=== PATIENT | female | born 1970 | race Caucasian/White ===

== ENCOUNTER → 2020-03-27 | Outpatient (CLI) | payer OTHER, SELFPAY ==
[2020-03-27 08:57] VITALS: BMI 24.4
[2020-03-31 20:48] LABS: HPV APTIMA, High Risk Negative (Negative)
== END | disposition home or self-care (01) ==
LOC: LABSPEC 13:37
PROVIDERS: PCP Student in an Organized Health Care Education/Training Program; Visit Provider Nurse Practitioner Women's Health
DX: Z12.4 Encounter for screening for malignant neoplasm of cervix (principal)
CPT/HCPCS: 87624; 88175; G0145

== ENCOUNTER → 2020-04-25 08:37 | Outpatient (CLI) | payer OTHER, SELFPAY ==
[2020-03-27 08:57] VITALS: BMI 24.4
--- NOTE | 2020-04-25 08:39 | BI_ITS ---
MAMMOGRAPHY - BILATERAL SCREENING REASON FOR EXAM: Female, 49 years old. Routine annual screening examination. PERTINENT HISTORY: Non-contributory. TECHNIQUE: Digital bilateral breast mary (3D mammographic acquisition) in the CC and MLO projections. 2-D mediolateral oblique (MLO) and craniocaudad (CC) views of both breasts were obtained. CAD: Full Field Digital Mammography with Computer Added Detection was performed. COMPARISON: Comparison is made with prior outside examination dated 12/10/2013. FINDINGS: Breast Composition: The breasts are extremely dense, which lowers the sensitivity of mammography. There are no dominant masses or suspicious calcifications. Stable benign-appearing bilateral axillary lymph nodes. No other significant abnormalities are identified. There has been no significant change since the prior study. BI/SCRN MAMM (CAD)W/MRAY BILAT IMPRESSION: Stable bilateral screening mammogram. Yearly follow-up mammogram recommended. (A) ASSESSMENT CATEGORY: BIRADS Category 2: Benign. A letter regarding these results will be sent to the patient by the facility within 30 days. Approximately 10% of breast cancers are not detected by mammography. A normal mammogram should not delay biopsy of a clinically suspicious abnormality. [id number] Electronically Signed: Mehrdad Barton MD at 15:36 EST , Service support ,
== END ==
LOC: OPBI 08:38
PROVIDERS: PCP Student in an Organized Health Care Education/Training Program; Referring Provider Nurse Practitioner Women's Health; Visit Provider Nurse Practitioner Women's Health
DX: Z12.31 Encounter for screening mammogram for malignant neoplasm of breast (principal)
CPT/HCPCS: 77063; 77067

== ENCOUNTER 2021-01-07 07:53 | Emergency (ER) | payer OTHER, SELFPAY ==
[2021-01-07 07:54] VITALS: BP 167/102; PULSE 79; RESP 18; TEMP 36.1; O2SAT 100; BMI 22.8
[2021-01-07 08:05] VITALS: BP 159/100; PULSE 78; RESP 11; O2SAT 100
--- NOTE | 2021-01-07 08:08 | CT_ITS ---
STUDY: CT CHEST WITH CONTRAST REASON FOR EXAM: Female, 50 years old. Chest pain/pressure. Intermittent dysphagia. RADIATION DOSAGE (If Supplied By Facility): CTDIvol = ( 11.77 ) mGy, DLP = ( 658.19 ) mGycm TECHNIQUE: Transaxial imaging was performed following intravenous administration of IV 100mL Isovue-370. Multiplanar coronal and sagittal images were reformatted. Individualized dose optimization techniques were used for this CT. COMPARISON: Comparison is made with prior study dated 07/09/2014. FINDINGS: There is evidence of increased linear markings in the right lung apex medially extending to the medial aspect of the right upper lobe in keeping with the patient''s history of prior surgery. Patient has a history of prior right apical pneumothorax. There is no demonstrated pleural abnormality. Normal heart and pericardium. Normal mediastinum. Normal hilar regions. Normal enhanced pulmonary arteries. Normal aorta arch and descending thoracic aorta. Normal osseous structures. There is no demonstrated abnormality of the visualized upper abdomen. CT/Chest WITH Contrast IMPRESSION: Findings in comparison with the prior surgery in the right lung apex with postoperative scarring. No acute abnormality is seen. Electronically Signed: Mehrdad Barton MD at 9:23 EDT , Service support ,
--- NOTE | 2021-01-07 08:08 | CT_ITS ---
STUDY: CT SOFT TISSUE NECK WITH CONTRAST REASON FOR EXAM: Female, 50 years old. Several week history of chest pain and chest pressure. Intermittent dysphagia. RADIATION DOSAGE (If Supplied By Facility): CTDIvol = ( 11.77 ) mGy, DLP = ( 658.19 ) mGycm TECHNIQUE: The patient was scanned in a multi-detector CT scanner. High resolution transaxial imaging was performed following intravenous administration of IV 100mL Isovue-370. Sagittal and coronal images were reconstructed. Individualized dose optimization techniques were used for this CT. COMPARISON: None. FINDINGS: Stable increased linear markings in the medial aspect of the right upper lobe with bronchiectasis in keeping with the patient''s history of prior surgical intervention. Normal bilateral parotid glands. Normal bilateral anthropometrist spaces. Normal bilateral parapharyngeal spaces. Normal bilateral carotid spaces. Normal bilateral sublingual and submandibular glands and spaces. Normal visualized nasopharynx. Normal retropharyngeal space. Normal perivertebral space. Normal visualized bilateral faucial tonsils. The visualized tongue, tongue base and oropharynx are normal. The visualized cervical lymph nodes (levels I-) are within normal size limits, and maintain normal morphology. There is no demonstrated solid or cystic mass lesion. There is no abnormal contrast enhancement. Normal epiglottis, bilateral vallecula and hypopharynx. The pre-epiglottic and paraglottic adipose spaces are normal. Normal visualized bilateral piriform sinuses, aryepiglottic folds, vocal cords, and arytenoid-cricoid articulations. Normal subglottic trachea. Normal bilateral lobes of the thyroid gland. Normal visualized pulmonary apices. Normal visualized paranasal sinuses. There is degenerative changes of the cervical spine. CT/Soft Tissue Neck WITH Contrast IMPRESSION: No acute abnormality is seen. Electronically Signed: Mehrdad Barton MD at 9:19 EDT , Service support ,
--- NOTE | 2021-01-07 08:08 | EKG12_ITS ---
Test Reason : CP Blood Pressure : / mmHG Vent. Rate : 077 BPM Atrial Rate : 077 BPM P-R Int : 106 ms QRS Dur : 094 ms QT Int : 380 ms P-R-T Axes : 051 066 066 degrees QTc Int : 430 ms Sinus rhythm with short CT Otherwise normal ECG Confirmed by YAMILE SHIN, EDWARD ([id number]), proposal editor AMADEO GOODE ([id number]) on 01/08/2021 1:56:12 P M Referred By: MARICRUZ Confirmed By:DAVID OVALLE MD
[2021-01-07 08:10] VITALS: O2SAT 100
--- NOTE | 2021-01-07 08:10 | EDS_ITS ---
HPI History of Present Illness Chief Complaint: Chest Pain Narrative Narrative: Patient presents with 1 week of constant chest pain under her right breast. She has no fevers chills cough or congestion she has no back pain or tearing sensation she also has had some difficulty swallowing over the past few weeks and has lost 12 pounds. No abdominal pain. No DVT or PE risk factors. PFSH PFSH Medical History H/O pneumothorax Home Medications cetirizine 10 mg capsule 10 mg PO DAILY 03/27/20 [History Last Taken Unknown] ibuprofen 200 mg tablet 200 mg PO Q6H PRN 03/27/20 [History Last Taken Unknown] Allergy/AdvReac Type Severity Reaction Status Date / Time No Known Allergies Allergy Verified 01/07/21 07:57 Family History Unknown Diabetes Hypertension Surgical History H/O chest tube placement H/O laparoscopy History of lung surgery Social History household members: spouse number of children: 2 current occupational status: employed current occupation: [employer] history of recent travel: No sexually active: Yes Smoking Status: Never smoker alcohol intake: current alcohol intake frequency: a few times a month substance use type: does not use what type of physical activity do you participate in: none seatbelt use: always do you feel safe at home: Yes additional social history: - Mg GUERRA ROS ED ROS Narrative Past medical history: Reviewed, she was just diagnosed with hyperlipidemia Medications: Reviewed Social history: Noncontributory Review of systems: All systems negative except as indicated General: No fever Eyes: No visual changes ENT: No upper airway congestion, normal voice Neck: No neck pain, she does feel some sort of lump in her throat or difficulty swallowing Cardiovascular: Right-sided chest pain as in HPI Respiratory: No shortness of breath or cough Gastrointestinal: No abdominal pain, nausea vomiting or diarrhea Genitourinary: No dysuria Musculoskeletal: Denies myalgias no difficulty with ambulation Skin: No rash Neurological: No memory loss, confusion or any focal weakness Psych: No recent behavioral changes Hematologic: No easy bleeding or easy bruising EXAM Physical Exam Narrative Exam Narrative: Physical exam General: Well nourished, Well developed, No Acute Distress Head: Normocephalic, Atraumatic Eyes: Conjunctiva not pale ENT: Moist mucous membranes Neck: Supple, Nontender, No lymphadenopathy. No goiter normal voice Cardiovascular: Regular rate, Regular rhythm Chest wall: She has reproducible chest wall tenderness under the right breast, I do not see any rash in that region. Respiratory: No distress, CTA bilaterally Abdomen: Soft, Nontender, Nondistended Back: Nontender, Normal Inspection. Negative for: CVA tenderness Extremities: Nontender, No edema Skin: Normal color, No rash Neurological: Alert, Normal Strength, Normal Sensation Psychological: Normal affect Const Vital Signs: 01/07/21 07:54 01/07/21 08:05 01/07/21 08:07 Temperature 97 F L Temperature Source Temporal Pulse Rate 79 78 Respiratory Rate 18 11 L Respiratory Effort Short of Breath Blood Pressure 167/102 H 159/100 H Blood Pressure Mean 123 119 Pulse Ox 100 100 Oxygen Delivery Method Room Air Room Air 01/07/21 08:10 01/07/21 09:25 Temperature Temperature Source Pulse Rate 78 Respiratory Rate 13 Respiratory Effort Blood Pressure 152/95 H Blood Pressure Mean 114 Pulse Ox 100 98 Oxygen Delivery Method Room Air MDM MDM MDM Narrative Medical decision making narrative: Patient has an unremarkable work-up other than slight hyponatremia which can be worked outpatient. Urged with PCP follow- up. I will refer to GI for the dysphagia. Lab Data Labs: Laboratory Results - last 24 hr 01/07/21 01/07/21 08:05 08:05 WBC 6.0 RBC 4.41 Hgb 13.8 Hct 41.0 MCV 93.0 MCH 31.3 MCHC 33.7 RDW Std Deviation 43.8 RDW Coeff of Drew 12.7 Plt Count 266 MPV 9.5 Immature Gran % (Auto) 0.300 Neut % (Auto) 70.4 H Lymph % (Auto) 12.2 L Archuleta % (Auto) 16.6 H Eos % (Auto) 0.2 Baso % (Auto) 0.3 Absolute Neuts (auto) 4.2 Absolute Lymphs (auto) 0.73 L Nucleated RBC % 0 Sodium 129 L Potassium 3.9 Chloride 91 L Carbon Dioxide 27.0 Anion Gap 11 BUN 2 L Creatinine 0.79 Estim Creat Clear Calc 87.85 Est GFR (MDRD) Af Amer 100 Est GFR (MDRD) Non-Af 83 BUN/Creatinine Ratio 2.5 L Glucose 102 Calcium 9.2 Troponin I High Sens 5 Radiography Diagnostic Testing: Clinical Impression(s) from Imaging Studies Chest CT 01/07/21 08:08 IMPRESSION: Findings in comparison with the prior surgery in the right lung apex with postoperative scarring. No acute abnormality is seen. Electronically Signed: Mehrdad Barton MD at 9:23 EDT , Service support , Soft Tissue Neck CT 01/07/21 08:08 IMPRESSION: No acute abnormality is seen. Electronically Signed: Mehrdad Barton MD at 9:19 EDT , Service support , EKG Initial EKG: Comments: Sinus rhythm with a rate of 77. Normal DC interval. Normal QTc interval. No ischemic changes. Interpreted by emergency doctor Discharge Plan Triage Chief Complaint: Chest Pain ED Provider: Andres Mayberry Dx/Rx/DC Orders Clinical Impression: Chest pain, Dysphagia Prescriptions: No Action Zyrtec 10 mg capsule 10 mg PO DAILY RF: 0 ibuprofen [Advil] 200 mg tablet 200 mg PO Q6H PRN (Reason: Pain) RF: 0 Primary Care Provider: Nolberto Forte Referrals: Nolberto Forte DO [Primary Care Provider] - 2 Days Friend,DO Herbie [STAFF PHYSICIAN] - 3-5 Days Disposition Disposition: Home, Self Care
[2021-01-07] MEDS: Aspirin 81 MG TAB.CHEW 324 MG PO (08:14)
[2021-01-07 08:22] LABS: Absolute Lymphocyte Count 0.73 X10^3/uL (0.83-4.51); Absolute Neutrophil Count 4.2 X10^3/uL (2.0-7.7); Basophil# 0.02 X10^3/uL; Basophil% 0.3 % (0-1); Eosinophil# 0.01 X10^3/uL; Eosinophils% 0.2 % (0-5); Hemoglobin 13.8 g/dL (12.0-15.0); Lymphocyte # 0.73 X10^3/ul (0.83-4.51); Lymphocyte % 12.2 % (19-41); Mean Corp Hgb Conc 33.7 g/dL (32-36); Mean Corpuscular Hgb 31.3 pg (27.0-32.0); Mean Platelet Vol. 9.5 fl (6.2-12.0); Monocyte# 0.99 X10^3/uL; Monocyte% 16.6 % (0-10); NRBC Flagged by Analyzer 0 % (0-5); Neutrophil % 70.4 % (47-70); Platelet Count 266 K/mm3 (150-450); RBC Distribution Width CV 12.7 % (11.6-14.6); RBC Distribution Width SD 43.8 fl (35.1-43.9); Red Blood Count 4.41 M/mm3 (4.2-5.4)
[2021-01-07 08:37] LABS: Anion Gap 11 (5-15); BUN 2 mg/dL (7-18); BUN/Creat Ratio 2.5 RATIO (10-20); Calcium,Total 9.2 mg/dL (8.5-10.1); Chloride 91 mmol/L (98-107); Creatinine, Serum 0.79 mg/dL (0.55-1.02); EST Glomerular Filtration Rate 83 mL/min (>60); Est Glom Filt Rate - Afr Amer 100 mL/min (>60); Estimated Creatinine Clearance 87.85 ml/min; Glucose 102 mg/dL (74-106); Potassium 3.9 mmol/L (3.5-5.1); Sodium Level 129 mmol/L (136-145); Troponin-I HS 5 pg/mL (3.0-54.0)
[2021-01-07 09:25] VITALS: BP 152/95; PULSE 78; RESP 13; O2SAT 98
[2021-01-07 10:20] VITALS: BP 148/99; PULSE 71; RESP 16; RESP 18; O2SAT 99
== END 2021-01-07 10:21 | disposition home or self-care (01) ==
PROVIDERS: Emergency Provider Emergency Medicine; PCP Student in an Organized Health Care Education/Training Program
DX: R07.89 Other chest pain (principal); R13.10 Dysphagia, unspecified; E78.5 Hyperlipidemia, unspecified
CPT/HCPCS: 70491; 71260; 80048; 84484; 85025; 93005; 99285; Q9967; A4216